=== PATIENT | male | born 1960 | race Caucasian/White ===

== ENCOUNTER 2020-07-19 08:29 | Outpatient (CLI) | payer MEDICARE, SELFPAY ==
--- NOTE | ~2020-07-19 | CT_ITS ---
EXAMINATION:CT lung screening DATE: 07/19/2020 08:49 INDICATION: Personal history of tobacco dependence. Current smoker with 49 pack year history. TECHNIQUE: Computed tomography (CT) of the chest was performed without intravenous contrast. Automate d exposure control and iterative reconstruction technique were employed. The dose-length product (DLP ) was 244.24 mGy-cm. COMPARISON: Chest CT 07/22/2019 FINDINGS: There is moderate emphysema. There is mild atelectasis bilaterally. There is a 5 mm nodule in left upper lobe without change. There is mild atelectasis in the lingula. There is a 3 mm nodule i n left upper lobe without change. There is a 5 mm nodule in right lower lobe without change. No pleur al effusion. The heart size is normal. There are coronary artery calcifications. No pericardial effus ion. There is bilateral gynecomastia. There are old bilateral rib fractures. There is severe thoracic spondylosis. IMPRESSION: 1. Lung-RADS category 2: Benign appearance or behavior. Continue annual screening with noncontrast lo w-dose chest CT in 12 months. Reviewed, dictated and finalized at location A. 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 Lung-RADS category 2: Benign appearance or behavior. Continue annual screeni ng with noncontrast low-dose chest CT in 12 months.
== END 2020-07-19 08:30 | disposition home or self-care (01) ==
PROVIDERS: PCP Family Medicine; Visit Provider Nurse Practitioner Family
DX: Z12.2 Encounter for screening for malignant neoplasm of respiratory organs (principal); Z87.891 Personal history of nicotine dependence
CPT/HCPCS: G0297

== ENCOUNTER 2021-07-10 11:31 | Outpatient (CLI) | payer MEDICARE, SELFPAY ==
--- NOTE | ~2021-07-10 | CT_ITS ---
EXAMINATION: CT lung screening DATE: 07/10/2021 11:55 INDICATION: Personal history of nicotine dependence TECHNIQUE: Computed tomography (CT) of the chest was performed without intravenous contrast. The dose -length product was 255.11 mGy-cm. Automated exposure control and iterative reconstruction technique were employed. COMPARISON: CT dated 07/19/2020 FINDINGS: Heart size normal. No significant pleural or pericardial effusion. No thoracic lymphadenopa thy. Mild thickening of the esophagus. Consider esophagitis. The upper abdomen is unremarkable. There is gynecomastia. There is atherosclerosis of the aorta and coronary arteries. There are bilateral ol d rib fractures. Severe thoracic spondylosis. Stable 5 mm left upper lobe nodule. Stable 3 mm left up per lobe nodule. Moderate emphysema. There is a 3 mm right lower lobe nodule without significant mahoney ge. There is 2 mm right upper lobe nodule. No new pulmonary nodules or masses. IMPRESSION: 1. Lung-RADS category 2: Benign appearance or behavior. Continue annual screening with noncontrast lo w-dose chest CT in 12 months. 2: Mild thickening of the esophagus, suspicious for esophagitis. Reviewed, dictated and finalized at location A. 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 Lung-RADS category 2: Benign appearance or behavior. Continue annual screeni ng with noncontrast low-dose chest CT in 12 months. 2: Mild thickening of the esophagus, suspicious for esophagitis.
== END 2021-07-10 11:32 | disposition home or self-care (01) ==
LOC: ANHIMG 11:36
PROVIDERS: PCP Family Medicine; Visit Provider Nurse Practitioner Family
DX: Z87.891 Personal history of nicotine dependence (principal); R93.3 Abnormal findings on diagnostic imaging of other parts of digestive tract
CPT/HCPCS: 71271

== ENCOUNTER 2022-12-19 08:06 | Outpatient (CLI) | payer MEDICARE, SELFPAY ==
--- NOTE | 2023-01-07 14:17 | WPDSLEEPSTUD ---
Sleep Study Date of Study: 12/19/22 Ordering Provider: MODE Vargas Interpreting Physician: Leigh Weiner MD Sleep Study Type: Split Polysomnogram Height: 1.73 m Weight: 90.265 kg Body Mass Index: 30.2 Neck Circumference (inches): 17 [place]: 0 Reason for Sleep Study Complex sleep apnea Sleep History Yonathan Villaseñor II is a 62-year-old man with a history of complex sleep apnea. ? Tonight, he is having a split night study. He has used a BiPAP machine, has always had good BiPAP compliance until his machine malfunctioned. but now his machine isn't working well. His BiPAP machine is making a loud noise. He called [facility] ([facility]), helped him troubleshoot over the phone which didn't work. he has used BiPAP with 2.5 L bleed in with good compliance. He has COPD, takes Trelegy, Daliresp and p.r.n. albuterol. No sleep questionnaire was completed. [facility] Past Medical History Medical History (Updated 01/07/23 @ 19:52 by Leigh Weiner MD) Complex sleep apnea syndrome Congestive heart failure COPD (chronic obstructive pulmonary disease) Depression Diabetes Hypertension Ulnar nerve abnormality Surgical History Surgical History Hx of umbilical hernia repair Family History Family History Mother Obstructive sleep apnea Emphysema of lung COPD (chronic obstructive pulmonary disease) Other Family history of sleep apnea Social History Social History Smoking packs per day: 1 Smoking cigarettes per day: 20.0 Years smoked: 50 Smoking pack-years: 50.00 Smoking status: Current every day smoker Medications Home Medications Medication Instructions Recorded Confirmed Type aspirin 81 mg tablet,delayed 81 mg PO DAILY 02/07/20 06/12/22 History release (Adult Aspirin Regimen) atorvastatin 80 mg tablet 80 mg PO DAILY 02/07/20 06/12/22 History esomeprazole magnesium 40 mg 40 mg PO DAILY 02/07/20 06/12/22 History capsule,delayed release furosemide 40 mg tablet 40 mg PO QAM 02/07/20 06/12/22 History gabapentin 400 mg capsule 400 mg PO BID 02/07/20 06/12/22 History insulin glargine 100 unit/mL (3 1 unit subcut DAILY 02/07/20 06/12/22 History mL) subcutaneous pen (Lantus Solostar U-100 Insulin) insulin lispro protamine-lispro 1 sliding scale dose subcut 02/07/20 06/12/22 History 100 unit/mL (50-50) subcutaneous USEASDIRECTD susp (Humalog Mix 50-50 Insuln U-100) lisinopril 2.5 mg tablet 2.5 mg PO DAILY 02/07/20 06/12/22 History spironolactone 25 mg tablet 25 mg PO DAILY 02/07/20 06/12/22 History tramadol 50 mg tablet 50 mg PO Q6H PRN 02/07/20 06/12/22 History venlafaxine 150 mg 150 mg PO DAILY 02/07/20 06/12/22 History capsule,extended release 24 hr omeprazole magnesium 10 mg oral 10 mg PO DAILY 03/09/20 06/12/22 History suspension,delayed release (Prilosec) cholecalciferol (vitamin D3) 25 25 mcg PO TID 05/31/21 06/12/22 History mcg (1,000 unit) chewable tablet nitroglycerin 0.4 mg sublingual 0.4 mg sublingual Q5M PRN 12/11/21 06/12/22 History tablet fluticasone fur. 100 mcg-umeclid See Rx Instructions .Route 04/16/22 06/12/22 Rx 62.5 mcg-vilant 25 mcg .COMPLEX #60 ea inhalat.powder (Trelegy Ellipta) roflumilast 500 mcg tablet See Rx Instructions .Route 06/06/22 06/12/22 Rx (Daliresp) .COMPLEX #30 tabs ezetimibe 10 mg tablet 10 mg PO DAILY 06/12/22 06/12/22 History fexofenadine 180 mg tablet 180 mg PO DAILY 06/12/22 06/12/22 History (Janel Allergy) albuterol sulfate 90 mcg/actuation 2 puff inhalation Q6H PRN 08/05/22 Rx aerosol inhaler (ProAir HFA) shortness of breath or wheezing #8.5 grams eszopiclone 2 mg tablet (Lunesta) 2 mg PO ONCE #1 tablet 08/13/22 Rx albuterol sulfate 2.5 mg/3 mL 2.5 mg (3 mL) inhalation QID PRN 11/25/22 Rx (0.083 %) solution for nebulizatio
[2023-01-07 20:48] VITALS: BMI 30.2
== END 2022-12-20 07:21 | disposition home or self-care (01) ==
PROVIDERS: PCP Family Medicine; Visit Provider Physician Assistant
DX: G47.33 Obstructive sleep apnea (adult) (pediatric) (principal)
CPT/HCPCS: 95811

== ENCOUNTER 2023-02-07 09:41 | Outpatient (CLI) | payer MEDICARE, SELFPAY ==
--- NOTE | ~2023-02-07 | XR_ITS ---
EXAMINATION: XR chest 2V DATE: 02/07/2023 10:01 INDICATION: Chronic obstructive pulmonary disease. TECHNIQUE: Frontal and lateral views of the chest were obtained. COMPARISON: Chest CT 07/10/2021 FINDINGS: The lungs are hyperexpanded with mild reticular opacities, consistent with emphysema. No pn eumonia, pleural effusion, or pneumothorax. The heart size is normal. There are old healed bilateral rib fractures. IMPRESSION: 1. Emphysema. Reviewed, dictated and finalized at location A. IMPRESSION: 1. Emphysema.
== END 2023-02-07 09:42 | disposition home or self-care (01) ==
LOC: ANHIMG 09:44
PROVIDERS: PCP Family Medicine; Visit Provider Physician Assistant
DX: J44.9 Chronic obstructive pulmonary disease, unspecified (principal); R05.9 Cough, unspecified; J43.9 Emphysema, unspecified
CPT/HCPCS: 71046